=== PATIENT | female | born 2005 | race African-American/Black ===

== ENCOUNTER 2025-08-07 02:34 | Emergency (ER) | payer OTHER ==
[~2025-08-07] VITALS: Ht 170.2 cm; Wt 68.6 kg
[2025-08-07 02:48] VITALS: BP 101/70; PULSE 91; RESP 17; TEMP 97.9; O2SAT 100
[2025-08-07] MEDS: IBUPROFEN 400 MG TABLET PO ONE (05:07)
[2025-08-07] MEDS: ACETAMINOPHEN 500 MG TABLET PO ONE (05:08)
== END 2025-08-07 05:56 | disposition home or self-care (01) ==
LOC: EMS 02:38
DX: L02.31 Cutaneous abscess of buttock (principal); N91.2 Amenorrhea, unspecified; F17.210 Nicotine dependence, cigarettes, uncomplicated
CPT/HCPCS: 99283